=== PATIENT | female | born 2000 | race Caucasian/White ===

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

== ENCOUNTER 2019-03-13 12:21 | Emergency (ER) | payer BC ==
[~2019-03-13] VITALS: Ht 172.7 cm; Wt 57.6 kg
[2019-03-13 12:56] LABS: *CLARITY,URINE SLIGHTLY CLOUDY (CLEAR); *COLOR,URINE Orange (YELLOW)
[2019-03-13 13:08] LABS: WBC,URINE 20-50 /HPF (0-3)
[2019-03-13 13:09] LABS: *URINE HCG, QUAL NEGATIVE (NEGATIVE); BACTERIA,URINE FEW /HPF (NONE SEEN); SQUAMOUS EPITHELIAL CELL,UR MANY /HPF (NONE SEEN)
--- NOTE | 2019-03-13 13:15 | NUR ---
DR WATERS MADE PATIENT AWARE OF TEST RESULTS. WILL BE DC HOME.
--- NOTE | 2019-03-13 13:28 | NUR ---
Patient discharged to home in stable conditon. Written and verbal after care instructions given. Patient verbalizes understanding of instructions.
[2019-03-13 13:34] VITALS: BP 118/76
== END 2019-03-13 13:35 | disposition home or self-care (01) ==
LOC: ER 12:21
DX: N39.0 Urinary tract infection, site not specified (principal)
CPT/HCPCS: 84703; A4663

== ENCOUNTER 2019-03-18 16:13 | Emergency (ER) | payer BC ==
[~2019-03-18] VITALS: Ht 172.7 cm; Wt 59.0 kg
--- NOTE | 2019-03-18 16:40 | NUR ---
PT SEEN AND EXAMINED BY DR VERDUGO.
[2019-03-18 16:48] LABS: *BILIRUBIN,URIN NEGATIVE (NEGATIVE); *BLOOD, URINE 2+ (NEGATIVE); *CLARITY,URINE SLIGHTLY CLOUDY (CLEAR); *COLOR,URINE YELLOW (YELLOW); *KETONES,URINE NEGATIVE (NEGATIVE); *URINE HCG, QUAL NEGATIVE (NEGATIVE); *UROBILINOGEN,URINE 0.2 E.U./dl (NORMAL); LEUKOCYTE ESTERASE ,URINE 1+ (NEGATIVE); NITRITE, URINE NEGATIVE (NEGATIVE); UGLUCOSE NEGATIVE (NEGATIVE)
--- NOTE | 2019-03-18 16:50 | NUR ---
Patient discharged to home in stable conditon. Written and verbal after care instructions given. Patient verbalizes understanding of instructions.
[2019-03-18 16:51] VITALS: BP 101/68
[2019-03-18 16:56] LABS: BACTERIA,URINE MANY /HPF (NONE SEEN); RBC,URINE 50-80 /HPF (0-3); SQUAMOUS EPITHELIAL CELL,UR MODERATE /HPF (NONE SEEN); WBC,URINE 20-50 /HPF (0-3)
== END 2019-03-18 16:52 | disposition home or self-care (01) ==
LOC: ER 16:15
DX: N39.0 Urinary tract infection, site not specified (principal)
CPT/HCPCS: 84703; 87086; A4663